=== PATIENT | male | born 1970 | race Caucasian/White ===

== ENCOUNTER 2023-03-21 04:29 | Day surgery (SDC) | payer OTHER ==
[2023-03-14 10:29] VITALS: BMI 32.5
[2023-03-21] MEDS ORDERED: BUPIVACAINE HCL/PF 0.25% (2.5MG/ML) 10 ML VIAL ONE (12:07)
[2023-03-21] MEDS ORDERED: SUGAMMADEX SODIUM 200 MG/2 ML VIAL ONE (13:18)
[2023-03-21] MEDS ORDERED: PROPOFOL 20 ML ONE ×2 (13:18→14:33)
[2023-03-21] MEDS ORDERED: FENTANYL CITRATE/PF 50 MCG/ML VIAL ONE ×4 (13:18→16:08)
[2023-03-21] MEDS ORDERED: SUCCINYLCHOLINE CHLORIDE 200 MG/10 ML SYRINGE ONE (13:19)
[2023-03-21] MEDS ORDERED: ROCURONIUM BROMIDE 50 MG/5 ML SYRINGE ONE (13:19)
[2023-03-21] MEDS ORDERED: MIDAZOLAM HCL 2 MG/2 ML SINGLE DOSE VIAL ONE (13:19)
[2023-03-21] MEDS ORDERED: ceFAZolin SODIUM 1 GM VIAL IVPB ONE (14:02)
[2023-03-21] MEDS ORDERED: BUPIVACAINE HCL/PF 0.25% (2.5MG/ML) 10 ML VIAL IJ ONE (14:11)
[2023-03-21] MEDS ORDERED: oxyCODONE HCL 5 MG TABLET PO PRN (15:01)
[2023-03-21] MEDS ORDERED: ACETAMINOPHEN 325 MG TABLET (FP) PO PRN (15:01)
[2023-03-21] MEDS ORDERED: ONDANSETRON 4 MG/2 ML VIAL IVPUSH PRN (15:01)
[2023-03-21] MEDS ORDERED: ACETAMINOPHEN 1000 MG/100 ML BAG IVPB ONE (15:01)
[2023-03-21] MEDS ORDERED: LACTATED RINGERS SOLUTION 1,000 ML IV SCH (15:15)
[2023-03-21] MEDS ORDERED: FENTANYL CITRATE/PF 50 MCG/ML VIAL IVPUSH ONE (15:48)
[2023-03-21] MEDS ORDERED: oxyCODONE HCL 5 MG TABLET PO ONE (17:06)
[2023-03-21] MEDS ORDERED: oxyCODONE HCL 5 MG TABLET ONE (17:10)
[2023-03-21 17:27] VITALS: RESP 16
[2023-03-21 18:14] VITALS: BP 109/72; PULSE 71; TEMP 97.8
== END 2023-03-21 18:05 | disposition home or self-care (01) ==
LOC: JASU-SURG 04:29
PROVIDERS: ATTEND Surgery
PROC: 0FT44ZZ Resection of Gallbladder, Percutaneous Endoscopic Approach (ICD-10-PCS; principal; 2023-03-21 15:00)
DX: K80.12 Calculus of gallbladder with acute and chronic cholecystitis without obstruction (principal)
CPT/HCPCS: 88304-TC; 94760